=== PATIENT | female | born 1965 | race Caucasian/White ===

== ENCOUNTER 2023-02-18 23:42 | Inpatient (IN) | payer OTHER, SELFPAY ==
--- NOTE | ~2023-02-18 | CT_ITS ---
EXAMINATION: CTA chest PE protocol DATE: 02/19/2023 02:34 INDICATION: Shortness of breath. Cough. TECHNIQUE: Computed tomography angiography (CTA) of the chest was performed with 100 mL Omnipaque-350 intravenous contrast timed to evaluate the pulmonary arteries. Coronal maximum intensity projection 3D-reconstructions were created by the technologist. Automated exposure control and iterative reconst ruction technique were employed. The dose-length product was 146.12 mGy-cm. COMPARISON: None. FINDINGS: There is moderate emphysema. There is smooth septal thickening in the lungs, consistent wit h pulmonary edema. There are airspace and groundglass opacities in basilar left lower lobe. There are small pleural effusions. Cardiomegaly is noted. There are coronary artery calcifications. No pericar dial effusion. There are acute pulmonary emboli in right lower lobe, right upper lobe, and left lower lobe. There is mucous plugging in left lower lobe. The central pulmonary arteries are enlarged, cons istent with pulmonary arterial hypertension. There is mild thoracic spondylosis. IMPRESSION: 1. Acute pulmonary emboli in right lower lobe, right upper lobe, and left lower lobe. 2. Mild pulmonary edema. 3. Groundglass and airspace opacities in basilar left lower lobe, consistent with infarct versus pneu monia. 4. Moderate emphysema. 5. Cardiomegaly. Reviewed, dictated and finalized at location A. IMPRESSION: 1. Acute pulmonary emboli in right lower lobe, right upper lobe, and left lower lobe. 2. Mild pulmonary edema. 3. Groundglass and airspace opacities in basilar left lower lobe, consistent wi th infarct versus pneumonia. 4. Moderate emphysema. 5. Cardiomegaly.
--- NOTE | ~2023-02-18 | XR_ITS ---
EXAMINATION: XR chest 1V portable DATE: 02/19/2023 07:45 INDICATION: Respiratory failure. TECHNIQUE: A single frontal view of the chest was obtained. COMPARISON: Chest single view 02/19/2023 at 4:26 AM FINDINGS: There is a worsened diffuse interstitial pattern, consistent mild pulmonary edema. No pleur al effusion or pneumothorax. Cardiomegaly is noted. The endotracheal tube tip is 5.9 cm above the car demian. The nasogastric tube tip is in the stomach. A right internal jugular central venous catheter is seen with tip at the superior cavoatrial junction. IMPRESSION: 1. Worsened mild pulmonary edema. 2. Cardiomegaly. Reviewed, dictated and finalized at location A.
--- NOTE | ~2023-02-18 | US_ITS ---
EXAMINATION: US venous doppler [facility] DATE: 02/19/2023 11:40 INDICATION: Acute pulmonary emboli. TECHNIQUE: Grayscale ultrasound images without and with compression and Doppler ultrasound images of the bilateral lower extremity veins were obtained. COMPARISON: None. FINDINGS: The visualized portions of right common femoral vein, profunda (deep) femoral vein, femoral vein, pop liteal vein, peroneal veins, posterior tibial veins, and greater saphenous vein outflow are patent. T here is thrombus in right gastrocnemius vein and right lesser saphenous vein. The visualized portions of left common femoral vein, profunda femoral vein, femoral vein, popliteal v ein, and greater saphenous vein outflow are patent. There is thrombus in left posterior tibial and pe roneal veins. IMPRESSION: 1. Deep vein thrombosis involving right gastrocnemius vein and left posterior tibial and peroneal ve ins. 2. Superficial vein thrombosis involving right lesser saphenous vein. Reviewed, dictated and finalized at location A. IMPRESSION: 1. Deep vein thrombosis involving right gastrocnemius vein and left posterior tibial and peroneal veins. 2. Superficial vein thrombosis involving right lesser saphenous vein.
--- NOTE | ~2023-02-18 | XR_ITS ---
EXAMINATION: XR chest ET placement DATE: 02/19/2023 04:37 INDICATION: Intubation. TECHNIQUE: A single frontal view of the chest was obtained. COMPARISON: Chest 2 views 02/19/2023, chest CT 02/19/2023 FINDINGS: The lungs are hyperexpanded with lucencies, consistent with emphysema. There is mild atelec tasis in right midlung zone. There is a diffuse interstitial pattern, right worse than left, consiste nt mild pulmonary edema. No pleural effusion or pneumothorax. Cardiomegaly is noted. The endotracheal tube tip is 5.3 cm above the oscar. The nasogastric tube tip is in the stomach. A right internal ju gular central venous catheter is seen with tip at the superior cavoatrial junction. IMPRESSION: 1. Mild pulmonary edema. 2. Emphysema. 3. Cardiomegaly. Reviewed, dictated and finalized at location A.
--- NOTE | ~2023-02-18 | CT_ITS ---
EXAMINATION: CT brain wo con DATE: 02/19/2023 09:00 INDICATION: Transient alteration of awareness. TECHNIQUE: Computed tomography (CT) of the head was performed without intravenous contrast. The mA wa s adjusted according to patient size. Iterative reconstruction technique was employed. The dose-lengt h product was 605.33 mGy-cm. COMPARISON: None FINDINGS: There is a small old infarct in left cerebellum. There is an old infarct involving left fro ntal, parietal, and occipital lobes. There is an old infarct in the left basal ganglia. There is no i ntracranial hemorrhage, acute infarction, or abnormal intracranial mass lesion. There is ex vacuo dil atation of left lateral ventricle. There is mild mucosal thickening in the paranasal sinuses. The mas toid air cells are normal. The orbits are normal. IMPRESSION: 1. 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 Reviewed, dictated and finalized at location A. IMPRESSION: 1. Old infarcts involving the left cerebellum, left frontal, parietal, and occi pital lobes, and left basal ganglia.
--- NOTE | ~2023-02-18 | XR_ITS ---
EXAMINATION: XR chest 2V DATE: 02/19/2023 00:27 INDICATION: Respiratory failure. TECHNIQUE: Frontal and lateral views of the chest were obtained. COMPARISON: Chest CT 02/19/2023 FINDINGS: The lungs are hyperexpanded with lucencies, consistent with emphysema. There is a diffuse i nterstitial pattern, consistent with mild pulmonary edema. There is a small left pleural effusion. No pneumothorax. Cardiomegaly is noted. IMPRESSION: 1. Mild pulmonary edema. 2. Small left pleural effusion. 3. Emphysema. 4. Cardiomegaly. Reviewed, dictated and finalized at location A.
--- NOTE | ~2023-02-18 | XR_ITS ---
EXAMINATION: XR abdomen NG/feed tube insert DATE: 02/19/2023 04:37 INDICATION: Nasogastric tube placement. TECHNIQUE: An upright view of the abdomen was obtained. COMPARISON: None. FINDINGS: The lower abdomen is excluded. There are no dilated loops of bowel. The nasogastric tube ti p is in the stomach. IMPRESSION: 1. Nasogastric tube tip in the stomach. Reviewed, dictated and finalized at location A.
[2023-02-18 23:47] VITALS: BP 118/82; PULSE 112; RESP 20; TEMP 36.6; O2SAT 98
[2023-02-19] VITALS (144 sets, daily range): BP systolic 36–160; BP diastolic 19–133; PULSE 0–173; RESP 0–56; TEMP 33.3–35.3; O2SAT 21–98
--- NOTE | 2023-02-19 | ECHO_ITS ---
Patient Info Name: Zo Lipscomb Age: 57 years : 1965 Gender: Female Ht: 62 in Wt: 112 lbs BSA: 1.49 m2 HR: 109 bpm BP: 131 / 113 mmHg Technical Quality: Fair Exam Date: 02/19/2023 7:59 AM Exam Location: [facility] Patient Status: Inpatient Admit Date: 02/19/2023 Staff Ordering Physician: Hugo Burton MD Nurse Clinician: Tomasa Benites RDCS Attending Provider: Lola Sanchez DO Exam Type: CA echo doppler color flow Study Info Indications I46.2 - Cardiac arrest due to underlying cardiac condition Complete two-dimensional, color flow and Doppler transthoracic echocardiogram is performed. Summary 1. Complete two-dimensional, color flow and Doppler transthoracic echocardiogram is performed. 2. Technically difficult study, suboptimal image quality. Normal LV size and wall thickness, severe global LV systolic dysfunction, ejection fraction about 25-30%, diastolic dysfunction is present. Normal RV size, mild RV systolic dysfunction. Mild left atrial enlargement. Mild mitral valve thickening, mild MR. Aortic valve appears mildly sclerotic, no hemodynamically significant stenosis. Mild TR, mild pulmonary hypertension, RVSP 43 mmHg. Left Ventricle Left ventricular systolic function is severely reduced, estimated at 25-30%. There is mildly increased left ventricular wall thickness. The left ventricular diastolic function is abnormal. Right Ventricle Right ventricular chamber dimension is normal. Right ventricular systolic function is reduced. Left Atria Left atrial chamber dimension is mildly enlarged. Right Atria Right atrial chamber dimension is normal. Aortic Valve There is mild aortic valve sclerosis. Pulmonic Valve The pulmonic valve is not well visualized. Mitral Valve The mitral valve has thickened leaflets. There is mild mitral valve regurgitation. Tricuspid Valve The tricuspid valve leaflets are normal. There is mild tricuspid valve regurgitation. Mild pulmonary hypertension, estimated pulmonary arterial systolic pressure is 43 mmHg. Pericardium/Pleural There is small pericardial effusion. Inferior Vena Cava Normal inferior vena cava with >50% collapse upon inspiration consistent with normal right atrial pressure, 8 mmHg. Left Ventricular Outflow Tract Name Value Normal LVOT 2D LVOT Diameter 1.9 cm LVOT Doppler LVOT Peak Gradient 2 mmHg LVOT Mean Gradient 1 mmHg LVOT VTI 8 cm LVOT VTI/AV VTI Ratio 0.5 LVOT Stroke Volume 23 ml LVOT CO 8.1 l/min LVOT CI 5.4 l/min/m2 Tricuspid Valve Name Value Normal TV Regurgitation Doppler TR Peak Velocity 298 cm/s TR Peak Gradient 3
--- NOTE | 2023-02-19 00:27 | PC.NURSE ---
Grant Jarvis patient's son phone number [phone]
--- NOTE | 2023-02-19 00:47 | ECG_ITS ---
Measurements Intervals [place] Rate: 108 P: 67 MN: 127 QRS: 5 QRSD: 81 T: 84 QT: 343 QTc: 462 Interpretive Statements SINUS TACHYCARDIA WITH FREQUENT SUPRAVENTRICULAR PREMATURE COMPLEXES LEFT VENTRICULAR HYPERTROPHY POSSIBLE SEPTAL MYOCARDIAL INFARCTION , OF INDETERMINATE AGE Electronically Signed On 02-19-2023 10:18:00 CDT by Yuan Deras M.D.
--- NOTE | 2023-02-19 00:59 | ED.SOB ---
HPI - SOB/Dyspnea General Chief Complaint: Shortness of Breath/Dyspnea <Lyla Stephens PA-C - Last Filed: 02/19/23 17:03> Stated Complaint: sob <Lyla Stephens PA-C - Last Filed: 02/19/23 17:03> Time Seen by Provider: 02/19/23 00:25 <Lyla Stephens PA-C - Last Filed: 02/19/23 17:03> History of Present Illness HPI Narrative: Patient is a 57-year-old female history of tobacco use here due to shortness of breath over the past several months, acutely worsened over the past week. She states that she has had severe dyspnea at rest on exertion, states she is unable to walk several steps before she has to stop and catch her breath. She has had a productive cough, chest pain only with the cough, fatigue and generalized malaise. She was seen by her primary doctor and was given inhalers and steroids with transient relief. She has never seen pulmonology or had PFTs ordered. She had no fevers, leg swelling, nausea, vomiting or rashes. She does admit to smoking amphetamines every now and then, no IVDU. <Llya Setphens PA-C - Last Filed: 02/19/23 17:03> Related Data Home Medications: Home Medications Medication Instructions Recorded Confirmed Unable to Obtain Home Medications 02/19/23 02/19/23 <Lyla Stephens PA-C - Last Filed: 02/19/23 17:03> Allergies/Adverse Reactions: Allergies Allergy/AdvReac Type Severity Reaction Status Date / Time No Known Allergies Allergy Verified 02/18/23 23:43 <Lyla Stephens PA-C - Last Filed: 02/19/23 17:03> Review of Systems Review of Systems: All systems reviewed & are unremarkable except as noted in HPI and below <Lyla Stephens PA-C - Last Filed: 02/19/23 17:03> PMFSH Past Medical History Medical History: Medical History (Updated 02/19/23 @ 11:40 by Hugo Burton MD) COPD (chronic obstructive pulmonary disease) Methamphetamine abuse Tobacco dependence due to cigarettes <Lyla Stephens PA-C - Last Filed: 02/19/23 17:03> Surgical History Surgical History: Surgical History Surgical history unknown <Lyla Stephens PA-C - Last Filed: 02/19/23 17:03> Family History Family History: Family History (Updated 02/19/23 @ 11:25 by Yuan Deras MD) Other Unknown family medical history <Lyla Stephens PA-C - Last Filed: 02/19/23 17:03> Social History Social History: Social History Social History: The patient has her only son listed as her contact. She had mentioned that she smokes methamphetamines to the ER staff. Patient does have a long history of tobacco abuse. Other social history is unobtainable due to the patient's condition. <Lyla Stephens PA-C - Last Filed: 02/19/23 17:03> Exam Narrative: APPEARANCE: Thin, appears older than stated age, short of breath but able to speak in full sentences Head: Normocephalic and atraumatic. EYES: PERRLA/EOMI, conjunctivae clear NOSE: No nasal drainage EARS: External ear normal in appearance THROAT: Oropharynx is clear. Mucous membranes are moist. NECK: Supple. No adenopathy, no masses. RESPIRATORY: Respirations are labored, she has coarse breath sounds throughout all lung hernandez and expiratory wheezing in the right upper lobe. CARDIOVASCULAR: tachycardic, regular rhythm ABDOMINAL: Normoactive bowel sounds. Soft, nontender, nondistended. No rebound tenderness or guarding. MUSCULOSKELETAL: Extremities are warm and well-perfused. Moves all extremities well. No edema. NEURO: Normal speech. No focal neurologic deficits. SKIN: Skin is warm and dry. No rashes. PSYCHIATRIC: Normal affect/mood. <PHILIP Robertson Last Filed: 02/19/23 17:03> Course DUPLICATION SPECIALIST/PA Physician Supervision For this patient encounter, I reviewed the DUPLICATION SPECIALIST or PA documentation, treatment plan, and medical decision making;
[2023-02-19] MEDS: IPRATROPIUM BR 0.02% INH SOLN 0.5 MG/2.5 ML VIAL INHALATION ×2 (01:12→02:45)
[2023-02-19] MEDS: LEVALBUTEROL NEB 1.25 MG/3 ML INHALATION ×2 (01:13→02:45)
[2023-02-19 01:24] LABS: Alveolar/Arterial O2 Gradient 406.4 mmHg; Base Excess ABG -3.6 mEq/l (+/-2.0); Fractional Inspired Oxygen 80 %; HCO3 ABG 18.1 mEq/l (22.0-26.0); Oxygen Content ABG 13.8 %vol (16.0-22.0); Oxygen Saturation ABG 99.1 % (95.0-100.0); Oxyhemoglobin 96.1 % THb (90.0-100.0); PO2 ABG 139.8 mmHg (80.0-100.0); PO2 FiO2 Ratio Arterial Blood 1.75 %
[2023-02-19 01:27] LABS: pH ABG 7.513 (7.350-7.450)
[2023-02-19 01:28] LABS: Modified Allen's Test Pass; PCO2 ABG 23.1 mmHg (35.0-45.0); Site Drawn LEFT RADIAL
[2023-02-19 01:29] LABS: Device NASAL CANNULA
[2023-02-19 01:30] LABS: Basophils Percent Auto 0.3 % (0.2-1.2); Eosinophils Percent Auto 0.1 % (0-4.4); Hematocrit 31.3 % (37.0-47.0); Hemoglobin 9.6 g/dL (12.0-15.0); Immature Granulocyte Absolute 0.09 K/mm3 (0.00-0.031); Immature Granulocyte Percent A 0.6 % (0-0.5); Lymphocytes Absolute Auto 2.25 K/mm3 (0.9-3.2); Mean Corpuscular HGB Conc 30.7 g/dl (32-36); Mean Corpuscular Hemoglobin 25.3 pg (26-34); Mean Corpuscular Volume 82.6 fl (80-100); Mean Platelet Volume 9.7 fl (7.4-10.4); Monocytes Percent Auto 6.4 % (2.6-8.5); Neutrophils Absolute Auto 11.7 K/mm3 (1.3-6.7); Neutrophils Percent Auto 77.6 % (45.5-73.1); Nucleated Red Blood Cells Perc 0.2 % (0.0-0.2); Platelet Count Result 731 k/mm3 (150-375); Red Blood Count 3.79 M/mm3 (4.2-5.4); Red Cell Distribution Width 17.7 % (11.5-14.5); White Blood Count 15.1 K/mm3 (4.5-10.0)
[2023-02-19 01:31] LABS: Alanine Aminotransferase 16 U/L (6-35); Albumin Level 3.9 g/dL (3.5-5.1); Alkaline Phosphatase 101 U/L (38-126); Anion Gap 12 mmol/L (8-16); Aspartate Amino Transferase 57 U/L (14-36); Bilirubin,Total 0.7 mg/dL (0.2-1.3); Blood Urea Nitrogen 15 mg/dL (7-17); Calcium 9.2 mg/dL (8.4-10.2); Carbon Dioxide 22 mmol/L (22-30); Chloride 100 mmol/L (98-107); Estimated CRCL calculation 69 ml/min; Estimated Glomerular Filt Rate > 60; Glucose 117 mg/dL (65-110); Potassium 3.5 mmol/L (3.4-5.0); Sodium 134 mmol/L (137-145)
[2023-02-19 01:42] LABS: Magnesium 2.1 mg/dL (1.6-2.3)
[2023-02-19 01:56] LABS: INR 1.3; Partial Thromboplastin Time 28.1 SECONDS (22.3-36.8); Prothrombin Time 15.6 Seconds (11.1-14.7)
[2023-02-19 01:57] LABS: D Dimer 3.84 ug/mL (<0.48)
[2023-02-19 02:01] LABS: Troponin I 0.074 ng/mL (0.000-0.034)
[2023-02-19] MEDS: SODIUM CHLORIDE 0.9% IV 1,000 ML 999 ML IV CONT ×2 (02:38→03:12)
[2023-02-19] MEDS: LORazepam INJ (*CRX) 2 MG/ML VIAL 1 MG IV PUSH (03:11)
[2023-02-19] MEDS: ASPIRIN 81 MG CHEWABLE TABLET 324 MG PO (03:13)
[2023-02-19] MEDS: ENOXAPARIN 60 MG/0.6 ML SYRINGE 50 MG SUB-Q (03:35)
--- NOTE | 2023-02-19 03:38 | PC.NURSE ---
0340 20 mg etomidate given ivp vorb erp joann 0340 100 mg succinylcholine given ivp 0342 pt. has no pulse. CPR initiated 0343 pt. given epi ivp 0345 bicarb given 0345 pt. intubated w/ 7.5 et tube measuring at 25 at the lip 0345 pulse check, PEA CPR resumed 034 Epi given 0347 pulse check, pt. has a pulse Sinus tachycardia
[2023-02-19 04:01] LABS: Lactic Acid Reflex 4.2 mmol/L (0.7-2.0)
--- NOTE | 2023-02-19 04:02 | PC.NURSE ---
2 mg verssed given ivp 0402
[2023-02-19 04:05] LABS: Influenza A QL RT-PCR Negative (Negative); Influenza B QL RT-PCR Negative (Negative); SARS-CoV-2 RNA PCR Negative
[2023-02-19] MEDS: MIDAZOLAM 100MG/NS 100ML(*CRX) 100 MG/100 ML BAG IV CONT (04:10)
--- NOTE | 2023-02-19 04:13 | PC.NURSE ---
0414 50 mcg fentanyl ivp and 2 mg ivp versed marcos sweeney
[2023-02-19] MEDS: FENTANYL 2,500MCG/NS250ML(*CRX 2,500 MCG/250 ML BAG IV CONT (04:18)
--- NOTE | 2023-02-19 04:21 | PC.NURSE ---
0416 50 mcg fentanyl given ivp and 2 mg versed ivp vorb erp patel
--- NOTE | 2023-02-19 04:25 | PC.NURSE ---
0417 50 mg rocuronium given ivp vorb erp joann or sedation
[2023-02-19 04:29] LABS: pH ABG 7.286 (7.350-7.450)
[2023-02-19 04:30] LABS: Base Excess ABG -15.7 mEq/l (+/-2.0); HCO3 ABG 9.2 mEq/l (22.0-26.0); Oxygen Saturation ABG 98.3 % (95.0-100.0); PCO2 ABG 19.7 mmHg (35.0-45.0); PO2 ABG 127.8 mmHg (80.0-100.0); Total Hemoglobin 9.3 g/dL (12.0-18.0)
[2023-02-19 04:31] LABS: Alveolar/Arterial O2 Gradient 565.5 mmHg; Device AMBU BAG; Fractional Inspired Oxygen 100 %; Oxygen Content ABG 12.8 %vol (16.0-22.0); Oxyhemoglobin 95.9 % THb (90.0-100.0); PO2 FiO2 Ratio Arterial Blood 1.28 %; Site Drawn LEFT FEMORAL
--- NOTE | 2023-02-19 04:36 | PC.NURSE ---
0432 no pulse. cpr initiated. pt. give 1 amp of epi
[2023-02-19] MEDS: NOREPINEPHRINE 8 MG/D5W 250 ML 8 MG/250 ML BAG 5 MG (04:38)
[2023-02-19] MEDS: DOPamine 400 MG/D5W 250 ML 400 MG/250 ML BAG IV CONT (04:49)
--- NOTE | 2023-02-19 04:49 | PC.NURSE ---
dopamine initiated at 5 mcg/kg/min
--- NOTE | 2023-02-19 05:08 | ECG_ITS ---
Measurements Intervals [place] Rate: 127 P: [place]: 0 QRS: 21 QRSD: 82 T: 75 QT: 309 QTc: 449 Interpretive Statements ECTOPIC ATRIAL RHYTHM SEPTAL MYOCARDIAL INFARCTION , PROBABLY OLD Electronically Signed On 02-19-2023 10:19:06 CDT by Yuan Deras M.D.
[2023-02-19] MEDS: NOREPINEPHRINE 8 MG/D5W 250 ML 8 MG/250 ML BAG 56.25 MG IV CONT (05:15)
--- NOTE | 2023-02-19 05:35 | PC.NURSE ---
pt. bp dropped, 1 amp of epi given vorb dr. sweeney
[2023-02-19] MEDS: VASOPRESSIN INJ 100 UNITS in DEXTROSE 5% 95 ML IV CONT (05:39)
--- NOTE | 2023-02-19 05:39 | PC.NURSE ---
0539 pt. given amp of bicarb 0539 pt. levophed increased to 40 0539 pt. dopamine increased to 20 0539 pt. vasopressin 0.4
--- NOTE | 2023-02-19 05:46 | PM.IMHP ---
H&P: HPI History of Present Illness Date/Time: 02/19/23 05:46 Chief Complaint: Shortness of breath Narrative: 57-year-old female with past medical history of COPD, iron deficiency anemia, hyperlipidemia and continued tobacco use who presented to the ER with shortness of breath. The patient reported to the ER staff that she had been feeling ill for about 5 months. She received his prescription for steroids from her primary care physician on the 05 of February. She reported to ER staff that she fell briefly better but her symptoms worsened over the course of the weekend she did side come in. Her dyspnea was worse with exertion and was only able to walk couple of steps. She had a cough that was productive. She had a chest pain but only with coughing. She had fatigue and generalized malaise. She has been treated for COPD but has never had official pulmonary function testing. On my review of the patient's CT does. Patient has CT evidence of COPD. She denied having fevers or leg swelling to the ER staff. But the time of my evaluation the patient was noted to have some edema to her feet and ankles. However, I did not see the patient until after she had coded in the ER. In the ER she had received multiple breathing treatments and was having progressive distress. ER staff give the patient a dose of Ativan to see if they could make her more comfortable. After which time the patient required intubation. During the course of intubation the patient did code and required multiple rounds of CPR. Central line was placed by the ER physician in the right AJ with placement confirmed. ET tube placement was also confirmed. I went down to evaluate the patient shortly after code while the central line was being placed by the ER physician. The patient was started on sedation with fentanyl and Versed. The patient was a synchronous with the vent. Initially the patient's blood pressures were stable. But she required extra doses of fentanyl and Versed due to a synchrony with the vent. She also received a dose of rocuronium. After sedation the patient became hypotensive at which time I were Levophed. The patient was eventually maxed out on Levophed and up in the patient was started on dopamine as well. I had to obtain ABG with ultrasound guidance and the patient was clamped down and respiratory therapy was having trouble obtaining specimens. SI eventually got a right femoral arterial specimen. While I was evaluating the patient for possible arterial line placement the patient bradyed down and went into PEA. Patient's ABG had returned just prior to this in did demonstrate significant acidosis most likely metabolic in nature the patient's pCO2 is 19 and bicarb was 9. PH was 7.286. The patient received 1 amp of bicarb during her 1st code and received 2 more amps during the 2nd code. She received several doses of epinephrine and had return of circulation. I was able to obtain a right brachial art line and the patient's blood pressures had stabilized. But the shortly thereafter the patient's blood pressures had decompensated again an head patient was started on vasopressin and eventually epinephrine. When the patient coded for 3rd time in the ER ER physician and I decided that the patient would benefit from tPA given the preliminary read on the CTA of the chest demonstrated ?moderate clot burden. ? before intubation the patient had received a therapeutic dose of Lovenox. The patient received tPA and did stabilize hemodynamically long enough to get up to the ICU. When the patient was transferred to the ICU the patient was on 40 of Levophed vasopressin maxed out and epinephrine of 20 as well as dopamine of 20. While the patient was being transferred to the bed in the ICU all monitors had been removed so the patient to be connected to ICU monitors. During this process staff was concerned that the patient had no palpable pulse. Unfortunately the patient's arterial line had also be
--- NOTE | 2023-02-19 06:04 | PC.NURSE ---
0603 Patients HR dropped to 42, faint pulse via doppler, cpr started. 0605 epi given. 0606 pulse check, no pulse, cpr resumed. 0607 epi given. 06 VORB 50mg of TPA per Dr. Soni. 06 epi given 06 pulse check via doppler, pulse detected. 0612 1 amp of bicarb given.
[2023-02-19 06:39] LABS: Reflex Lactic Acid Yes or No Add Lactic
--- NOTE | 2023-02-19 06:39 | PC.NURSE ---
Attempted to call phone number listed for pt's son Duncan Jarvis [phone] to inform of code blue. Phone was answered at [phone] with KUSH stephens replied, Hi, this is Charlotte calling from [facility], is this Duncan? Call was disconnected. bridges and buildings supervisor attempted to call back at [phone], phone rang twice and was sent to voicemail that is not set up.
[2023-02-19] MEDS: EPINEPHrine INJ 4 MG in DEXTROSE 5% IN WATER 250 ML 38.1 MG IV CONT (06:45)
[2023-02-19 07:21] LABS: Alveolar/Arterial O2 Gradient 538.5 mmHg; Carboxyhemoglobin 1.7 % THb (0-2.0); Fractional Inspired Oxygen 100 %; HCO3 ABG 17.2 mEq/l (22.0-26.0); Methemoglobin ABG 0.3 %THb (0-1.5); Oxygen Content ABG 12.8 %vol (16.0-22.0); Oxygen Saturation ABG 95.8 % (95.0-100.0); Oxyhemoglobin 92.4 % THb (90.0-100.0); PO2 FiO2 Ratio Arterial Blood 1.12 %; Reduced Hemoglobin 5.6 %THb (0-5.0); Total Hemoglobin 9.7 g/dL (12.0-18.0)
[2023-02-19 07:22] LABS: Site Drawn RIGHT RADIAL
[2023-02-19 07:25] LABS: Device VENTILATOR; Modified Allen's Test Pass
[2023-02-19 07:26] LABS: Arterial Blood Gas Vent Mode CMV; Arterial Blood Gas Ventilator rate 20 /MIN; PCO2 ABG 62.5 mmHg (35.0-45.0); pH ABG 7.057 (7.350-7.450)
[2023-02-19 07:27] LABS: Arterial Blood Gas PEEP 10 cmH2O; Arterial Blood Gas Tidal Volume 360 ml
[2023-02-19] MEDS: SODIUM BICARBONATE 8.4% 50 MEQ/50 ML SYRINGE 100 MEQ IV PUSH ×2 (07:30→13:02)
[2023-02-19 07:32] LABS: Hematocrit 33.4 % (37.0-47.0); Hemoglobin 9.3 g/dL (12.0-15.0); Mean Corpuscular HGB Conc 27.8 g/dl (32-36); Mean Corpuscular Hemoglobin 25.3 pg (26-34); Mean Corpuscular Volume 90.8 fl (80-100); Mean Platelet Volume 9.2 fl (7.4-10.4); Platelet Count Result 258 k/mm3 (150-375); Red Blood Count 3.68 M/mm3 (4.2-5.4); Red Cell Distribution Width 18.1 % (11.5-14.5); White Blood Count 23.1 K/mm3 (4.5-10.0)
[2023-02-19 07:54] LABS: Lactic Acid Reflex 17.3 mmol/L (0.7-2.0)
--- NOTE | 2023-02-19 07:56 | PC.NURSE ---
Patient brought up from ER with Vasopressin 0.4u/min, rate corrected to Vasopressin 0.04u/min.
[2023-02-19] MEDS: NOREPINEPHRINE 8 MG/D5W 250 ML 8 MG/250 ML BAG 75 MG IV CONT (07:58)
[2023-02-19] MEDS: SODIUM CHLORIDE 0.9% IV 500 ML 999 ML IV CONT (07:59)
[2023-02-19] MEDS: SODIUM BICARBONATE 8.4% 150 MEQ in WATER, STERILE FOR INJECTION 950 ML 100 MEQ IV CONT (08:07)
--- NOTE | 2023-02-19 08:07 | ADMGEN ---
This patient, Zo Lipscomb, was admitted to Intensive Care Unit-9. Patient/family oriented to hospital policies and general routines including ID bracelet, bed and alarms, visiting hours, pain management, procedures, bathroom and other care routines, personal items, smoking policy, room service/diet, and visiting hours. Information on how to activate the Rapid Response Team has been discussed. Patient/Family are encouraged to report perceived risks to care and to ask questions if they do not understand what they are told or what they should do.
[2023-02-19] MEDS: HYDROCORTISONE SODIUM SUCCINATE 100 MG/2 ML VIAL IV PUSH (08:08)
[2023-02-19] MEDS: PANTOPRAZOLE SODIUM IV 40 MG VIAL IV PUSH (08:09)
[2023-02-19 08:15] LABS: Alanine Aminotransferase 56 U/L (6-35); Albumin Level 2.2 g/dL (3.5-5.1); Alkaline Phosphatase 96 U/L (38-126); Anion Gap 22 mmol/L (8-16); Aspartate Amino Transferase 221 U/L (14-36); Bilirubin,Total 1.2 mg/dL (0.2-1.3); Blood Urea Nitrogen 13 mg/dL (7-17); Calcium 8.7 mg/dL (8.4-10.2); Carbon Dioxide 19 mmol/L (22-30); Chloride 101 mmol/L (98-107); Estimated CRCL calculation 53 ml/min; Estimated Glomerular Filt Rate > 60; Glucose 357 mg/dL (65-110); Magnesium 2.5 mg/dL (1.6-2.3); NT Pro B Type Natriuretic Pept 19300 pg/mL (19.9-100); Phosphorus 10.7 mg/dL (2.5-4.5); Potassium 4.2 mmol/L (3.4-5.0); Sodium 142 mmol/L (137-145)
[2023-02-19 08:19] LABS: Band Neutrophils Percent 8 % (0-6); Lymphocytes Absolute Manual 2.77 K/mm3 (1.1-4.5); Metamyelocytes Percent 2 %; Monocytes Absolute Manual 2.31 K/mm3 (0.1-0.90); Monocytes Percent Manual 10 % (3-9); Myelocytes Percent 1 %; Neutrophils Absolute Manual 17.09 K/mm3 (1.7-7.2); Neutrophils Percent Manual 66 % (46-73); Nucleated Red Blood Cells 2 %; Promyelocytes Percent 1 %; Total Cells Counted 100
[2023-02-19 08:20] LABS: Anisocytosis 2+ (NORMAL); Platelet Estimate Adequate (Adequate); Schistocytes None Seen (NORMAL)
--- NOTE | 2023-02-19 08:20 | P.PCNBED_ITS ---
Procedures Arterial Line Arterial Line Date: 02/19/23 Arterial Line Time: 04:30 Perfomed Emergently - Given emergent patient conditions, temporal constraints may have precluded informed consent: Yes Patient Position: supine Senior Principal Architect Prep: sterile gloves Site: right Site Prep: chlorhexidine Technique used: ultrasound-guided Size (Gauge): 20 Length: 4.4 cm Closure/Dressing: suture and transparent dressing Complications: none Additional comments: While all efforts were made to maintain sterile technique the procedure was performed emergently as the patient was unstable and do in critical condition. Arterial line was obtained on 2nd attempt. First attempt arterial blood was returned but guidewire would not feed throughout the course of the vessel and I could not advanced the catheter over the guidewire. Second attempt was uncomplicated.
[2023-02-19] MEDS: MINERAL OIL/WHITE PETROLATUM OINTMENT 1 APPLIC EACH EYE (09:34)
[2023-02-19 10:08] LABS: Appearance Urine Turbid (Clear); Bacteria Urine 4+ /hpf; Bilirubin Urine Negative (Negative); Blood Urine 3+ (Negative); Color Urine Dark Yellow (Yellow); Glucose Urine UA 2+ mg/dL (Negative); Hyaline Casts Urine Present /lpf; Ketones Urine Negative (Negative); Leukocyte Esterase Ur Negative LEU/UL (Negative); Nitrate Urine Negative (Negative); Protein Urine 4+ mg/dL (Negative); RBC Urine 21-50 /hpf (0-2); Squamous Epithelial Cell Urine Few /hpf (Few); WBC Urine 21-50 /hpf; pH Urine 5.5 (5.0-9.0)
[2023-02-19 10:13] LABS: Specific Grav Ur 1.045 (1.001-1.035)
[2023-02-19 10:14] LABS: Add Urine Microscopic? YES
--- NOTE | 2023-02-19 10:55 | WPDCNINT ---
Assessment and Plan Assessment and plan (1) Cardiopulmonary arrest with successful resuscitation: Code(s): I46.9 - Cardiac arrest, cause unspecified Status: Acute Assessment and Plan: Patient was found to be having acute pulmonary embolism of right lower and upper lobe and left lower lobe along with pulmonary edema and pneumonia which is likely the cause of cardiopulmonary arrest Patient was given tPA bolus of 50 mg and was started on multiple vasopressors post arrest EKG reviewed shows old infarct Echocardiogram shows Summary ? 1. Complete two-dimensional, color flow and Doppler transthoracic echocardiogram is performed. ? 2. Technically difficult study, suboptimal image quality.? Normal LV sizeand wall thickness, severe global LV systolic dysfunction, ejection fraction about 25-30%, diastolic dysfunction is present.? Normal RV size, mild RVsystolic dysfunction.? Mild left atrial enlargement.? Mild mitral valve thickening, mild MR.? Aortic valve appears mildly sclerotic, no hemodynamically significant stenosis.? Mild TR, mild pulmonary hypertension, RVSP 43 mmHg. Serial troponin ordered Cardiology consult I suspect patient has COPD from heavy prolonged smoking and cor pulmonale leading to hepatic enlargement and bilateral lower extremity edema LV dysfunction could be from cardiac arrest or underlying cardiomyopathy ICU monitoring Vasopressor support Patient was given tPA bolus for PE in the event of her cardiac arrest as a last resort measures. Moderate TTM for suspected anoxic brain injury Will check venous Dopplers to evaluate for DVT (2) Shock: Code(s): R57.9 - Shock, unspecified Status: Acute Assessment and Plan: Multifactorial shock secondary to PE, sepsis and cardiogenic Patient received 3 L IV fluid bolus in the ED and her a line waveform showed pulse pressure variation. I have given a 500 cc mL additional bolus and will continue IV fluids. Currently she is on for vasopressors including Levophed epinephrine vasopressin and dopamine. Will try to wean off dopamine if possible Added hydrocortisone for COPD and shock TPA infusion for PE Broad-spectrum antibiotics to treat her pneumonia -vancomycin Rocephin azithromycin Echo as above (3) Pulmonary embolism: Qualifiers: Acute cor pulmonale presence: unspecified Chronicity: acute Pulmonary embolism type: unspecified Qualified Code(s): I26.99 - Other pulmonary embolism without acute cor pulmonale Code(s): I26.99 - Other pulmonary embolism without acute cor pulmonale Status: Acute Assessment and Plan: See above (4) Respiratory failure: Qualifiers: Chronicity: acute Respiratory failure complication: hypoxia Qualified Code(s): J96.01 - Acute respiratory failure with hypoxia Code(s): J96.90 - Respiratory failure, unspecified, unspecified whether with hypoxia or hypercapnia Status: Acute Assessment and Plan: Multifactorial acute Respiratory failure secondary to pulmonary embolism, cardiac arrest, pneumonia, baseline COPD and pulmonary edema ABG reviewed this morning and I increase the rate to 28. She is currently on 100% FiO2 and 10 of PEEP Repeat ABG ordered Chest x-ray and CT scan reviewed Bronchodilator and hydrocortisone for COPD Blood and sputum cultures ordered Continue empiric antibiotics for pneumonia form of vancomycin Rocephin and azithromycin Her weaning will depend on neurological improvement Continue full mechanical ventilation support to prevent hypoxemia/hypercarbia and end organ damage. (5) COPD (chronic obstructive pulmonary disease): Code(s): J44.9 - Chronic obstructive pulmonary disease, unspecified Status: Acute Assessment and Plan: See above (6) CVA (cerebral vascular accident): Code(s): I63.9 - Cerebral infarction, unspecified Status: Acute Assessment and Plan: CT head shows Old infarcts involving the left cerebellum, left fro
--- NOTE | 2023-02-19 11:10 | PM.CNCAR ---
Assessment and Plan Assessment and plan (1) Pulmonary embolism: Code(s): I26.99 - Other pulmonary embolism without acute cor pulmonale Status: Acute Assessment and Plan: 57-year-old female with no known prior cardiac history; emphysema, History of CVA, tobacco and meth abuse. Patient brought to the hospital with worsening shortness of breath, had PA arrest, resuscitated successfully, intubated. Found to have pulmonary embolism. Treated with tPA. - tPA to be bridged with heparin. - ventilatory support as per er tech team - patient current on multiple pressors including epinephrine, norepinephrine, vasopressin. Echocardiogram On my personal evaluation shows severe LV systolic dysfunction. May attempt to wean off epinephrine if blood pressure tolerates and initiate inotrope support with Milrinone. (2) Cardiopulmonary arrest with successful resuscitation: Code(s): I46.9 - Cardiac arrest, cause unspecified Status: Acute Assessment and Plan: supportive care, ventilatory support (3) CHF (congestive heart failure): Code(s): I50.9 - Heart failure, unspecified Status: Acute Assessment and Plan: echo showed severe LV systolic dysfunction. Patient is post resuscitation. Supportive care for now. If patient shows minimal neurological recovery, then may initiate on guideline directed medical treatment when hemodynamically stable and off of pressors. (4) Respiratory failure: Qualifiers: Chronicity: acute Respiratory failure complication: hypoxia Qualified Code(s): J96.01 - Acute respiratory failure with hypoxia Code(s): J96.90 - Respiratory failure, unspecified, unspecified whether with hypoxia or hypercapnia Status: Acute Assessment and Plan: On ventilatory support (5) Emphysema lung: Code(s): J43.9 - Emphysema, unspecified Status: Acute Assessment and Plan: history of heavy tobacco abuse with imaging suggestive of emphysema. (6) CVA (cerebral vascular accident): Code(s): I63.9 - Cerebral infarction, unspecified Status: Acute Assessment and Plan: CT showed old infarct. (7) Anoxic brain injury: Code(s): G93.1 - Anoxic brain damage, not elsewhere classified Status: Acute Assessment and Plan: Anoxic brain injury after cardiopulmonary arrest. Continue to monitor neurological status. May need neurological evaluation at certain point. Plan Plan discussed with the er tech. patient's prognosis guarded. History of Present Illness History of Present Illness Consult date/time: 02/19/23 11:10 Reason For Visit: bilateral pe,respiratory failure Narrative: DATE OF CONSULT: 02/19/2023 REASON FOR CONSULT: cardiac arrest, PE, elevated troponin REQUESTING PHYSICIAN:Hugo Burton MD CHIEF COMPLAINT: shortness of breath HPI: 57-year-old female with no known prior cardiac history; emphysema, History of CVA, tobacco and meth abuse. Patient was brought to [facility] Room last night with worsening shortness of breath. Patient apparently has baseline shortness of breath for several months, with recent worsening. EKG on my personal evaluation showed sinus tachycardia with PACs, LVH; subsequent EKG showed atrial tachycardia. Patient underwent CT chest which showed acute pulmonary emboli in right lower lobe, right upper lobe, and left lower lobe; mild pulmonary jeffrey; groundglass and airspace opacities in basilar left lower lobe, consistent with infarct versus pneumonia, moderate emphysema, cardiomegaly. In the emergency room, patient had PA arrest and was resuscitate , intubated and transferred to ICU. She received tPA for pulmonary embolism. Her echocardiogram which I personally evaluated showed severe LV systolic dysfunction, ejection fraction about 25-30%, normal RV size with mild RV dysfunction, mild pulmonary hypertension. Patient remains on multiple pressors including e
[2023-02-19] MEDS: NOREPINEPHRINE 8 MG/D5W 250 ML 8 MG/250 ML BAG 67.5 MG IV CONT (11:40)
--- NOTE | 2023-02-19 12:15 | ECG_ITS ---
Measurements Intervals [place] Rate: 161 P: MT: 0 QRS: -14 QRSD: 84 T: 60 QT: 278 QTc: 455 Interpretive Statements ATRIAL FIBRILLATION WITH RAPID VENTRICULAR RESPONSE SEPTAL MYOCARDIAL INFARCTION, PROBABLY OLD COMPARED TO ECG 02/19/2023 03:50:29 ATRIAL FIBRILLATION NOW PRESENT Electronically Signed On 02-20-2023 12:51:13 CDT by Yuan Deras M.D.
[2023-02-19] MEDS: AMIODARONE 150 MG/D5W 100 ML 150 MG/100 ML BAG 600 MG IV CONT (12:17)
--- NOTE | 2023-02-19 12:21 | PDCODEBLUE ---
Code Blue Note Code Blue Note Time Arrived at Code Blue: 1155 Initial Rhythm on Arrival: Sinus tach Airway Management: Initiated bagging pt on arrival Chest Compressions: Initiated upon arrival Cardiac Rhythm Post Code: Sinus tachycardia Code Blue Summary: Patient was on multiple vasopressors already and I was called as patient's blood pressure had dropped. I gave patient IV bicarb and a IV push of epinephrine but despite that she lost her pulse and went into PEA. CPR was initiated and patient was ventilated with Ambu bag. Patient received 3 doses of epinephrine, 3 dose of at bicarb, and 1 calcium chloride before pulse was obtained. Post resuscitation patient was in AFib with RVR patient was in shock she was cardioverted with DC cardioversion into sinus tach. Amnio bolus and drip is being started. Additional critical care time except separately billed procedures 30 minutes
[2023-02-19] MEDS: AMIODARONE 360 MG/D5W 200 ML 360 MG/200 ML BAG 33.33 MG IV CONT (12:28)
[2023-02-19 12:30] LABS: Alveolar/Arterial O2 Gradient 588.2 mmHg; Base Excess ABG -9.7 mEq/l (+/-2.0); Fractional Inspired Oxygen 100 %; HCO3 ABG 17.5 mEq/l (22.0-26.0); Oxygen Content ABG 11.4 %vol (16.0-22.0); Oxygen Saturation ABG 93.6 % (95.0-100.0); Oxyhemoglobin 90.1 % THb (90.0-100.0); PO2 ABG 80.8 mmHg (80.0-100.0); PO2 FiO2 Ratio Arterial Blood 0.81 %; Total Hemoglobin 8.9 g/dL (12.0-18.0)
[2023-02-19 12:31] LABS: Glucose Point of Care 274 mg/dl (65-105)
[2023-02-19 12:32] LABS: pH ABG 7.217 (7.350-7.450)
[2023-02-19 12:33] LABS: Device VENTILATOR; Modified Allen's Test Pass; Site Drawn RIGHT BRACHIAL
[2023-02-19 12:34] LABS: Arterial Blood Gas Ventilator rate 28 /MIN
[2023-02-19 12:35] LABS: Arterial Blood Gas Vent Mode ASSIST CONTROL
[2023-02-19] MEDS: EPINEPHrine INJ 4 MG in DEXTROSE 5% IN WATER 250 ML 45.72 MG IV CONT (12:39)
[2023-02-19] MEDS: DOXYCYCLINE 100 MG/NS 100 ML 100 MG/100 ML BAG IVPB (12:44)
[2023-02-19] MEDS: DOPamine 400 MG/D5W 250 ML 400 MG/250 ML BAG 9.56 MG IV CONT (13:02)
[2023-02-19] MEDS: INSULIN ASPART (*BKC) 100 UNITS/ML SUB-Q (13:03)
--- NOTE | 2023-02-19 13:30 | PDCODEBLUE ---
Code Blue Note Code Blue Note Time Arrived at Code Blue: 1305 Initial Rhythm on Arrival: PEA Airway Management: Initiated bagging pt on arrival Chest Compressions: In process on arrival to bedside Result of Code Blue: Pt Cardiac Rhythm Post Code: PEA Code Blue Summary: Patient had coded multiple times already. Patient was in severe shock and respiratory failure. She was already on 4 vasopressors at a very high dose. Patient again dropped her blood pressure and went into PEA. CPR was initiated and patient was ventilated with Ambu bag. She was resuscitated for more than 15 minutes including 6 dose of epinephrine and bicarb but no pulse was obtained. Patient remained in PEA. At that point in light of situation code was called as by this time the resuscitation had become futile as patient was already on severe shock with for vasopressor and had had multiple cardiac arrests requiring resuscitation. Patient's son arrived at bedside and I spoke to him and updated him. He agreed the patient would not want to continue like this then walked out. He seemed to be under influence of some drugs he was visibly upset and and quickly walked out. Patient was pronounced at 1:22 p.m.. Additional critical care time -45 minutes
--- NOTE | 2023-02-19 13:37 | P.DN_ITS ---
Discharge Summary Date and Time Date of : 02/19/23 Time of : 13:22 Provider Pronounced By: Hugo Burton Probable Cause of Probable Cause of : Pulmonary embolism, shock, respiratory failure Summary Hospital Course: ?57 year old female with past medical history of COPD, iron deficiency anemia, hyperlipidemia, continued tobacco use and methamphetamine abuse was brought too the ER with shortness of breath.? The patient reported to the ER staff that she had been feeling ill for about 5 months.? She received his prescription for steroids from her primary care physician on the 05 of February.? She reported to ER staff that she fell briefly better but her symptoms worsened over the course of the weekend she did side come in.? Her dyspnea was worse with exertion and was only able to walk couple of steps.? She had a cough that was productive.? She had a chest pain but only with coughing.? She had fatigue and generalized malaise.? She has been treated for COPD but has never had official pulmonary function testing or diagnosed.? CTA in the ER showed pulmonary embolism, pneumonia and pulmonary edema.? Patient was started on antibiotics anticoagulation and was intubated.? Post intubation patient had a cardiac arrest.? Patient resuscitated and following that patient had at least 2 other episodes of PEA cardiac arrest where she received CPR, epinephrine and bicarb resuscitation.? Please refer to notes by overnight physician and ER for details.? Post resuscitation patient was admitted to ICU in profound shock and on for was a pressors, mechanical ventilation and IV fluid. On my examination patient is completely unresponsive, intubated and mechanical ventilation, on 4 vasopressor Brief additional history was obtained from patient's son who was at bedside who admitted the patient does not see a physician does not take any medications regularly.? He admitted the patient smokes heavily daily and has been smoking since she was 11 years old.? He also admits the patient takes methamphetamine and used to drink heavily in the past but has now quit.? She states that her boy friend 3 days ago from unknown cause and autopsy is still pending In ICU patient remained in severe shock requiring multiple vasopressors and respiratory failure. Patient was evaluated by Cardiology. Echocardiogram was done which showed EF of 25%.. patient was given tPA infusion for PE, antibiotic, IV fluids with bicarb and high dose of vasopressors. Patient had 2 cardiac arrests in ICU. Please refer to code blue summary. See patient resuscitated prolonged period of of time without ROSC. Patient was pronounced at 1:22 p.m. Additional Data Confirmation of as documented by pronouncing clinician: Pupillary Reflex, Palpable Pulses, Response to Stimuli, Heart Tones and Breath Sounds Family: at bedside
[2023-02-22 07:51] LABS: Arterial Blood Gas PEEP 10 cmH2O; Arterial Blood Gas Tidal Volume 360 ml
== END 2023-02-19 13:22 | disposition expired | DRG 134 ==
LOC: ANHED 02-19 04:33 → ANHICU 02-19 05:29
PROVIDERS: Emergency Medicine; Admitting Provider Internal Medicine; Emergency Provider Physician Assistant; PCP Physician Assistant; Visit Provider Internal Medicine
DX: I26.99 Other pulmonary embolism without acute cor pulmonale (principal); J96.00 Acute respiratory failure, unspecified whether with hypoxia or hypercapnia; J18.9 Pneumonia, unspecified organism; D64.9 Anemia, unspecified; J44.9 Chronic obstructive pulmonary disease, unspecified; E78.5 Hyperlipidemia, unspecified; Z20.822 Contact with and (suspected) exposure to COVID-19; F15.10 Other stimulant abuse, uncomplicated; F17.210 Nicotine dependence, cigarettes, uncomplicated
CPT/HCPCS: 31500; 36415; 36556; 36600; 51702; 70450; 71045; 71046; 71275; 80053; 81001; 82375; 82805; 82948; 83050; 83605; 83735; 83880; 84100; 84484; 85025; 85380; 85610; 85730; 87040; 87081; 87086; 87636; 93005; 93306; 93970; 94640; 94660; 96365; 96366; 96367; 96368; 96372; 96375; 99291; A9270; C1751; C9113; J0171; J0282; J0330; J0456; J0696; J1265; J1650; J1720; J1815; J2060; J2250; J2997; J3010; J3370; J7030; J7040; J7060; Q9967